=== PATIENT | male | born 1960 | race Caucasian/White ===

== ENCOUNTER 2021-05-30 14:08 | Inpatient (IN) | payer OTHER ==
[2021-05-30 16:07] VITALS: BMI 27.4
[2021-05-30] MEDS ORDERED: MAGNESIUM CITRATE 300 ML BOTTLE PO PRN (17:23)
[2021-05-30] MEDS ORDERED: MAG HYDROX/AL HYDROX/SIMETH 30 ML UNIT-DOSE CUP PO PRN (17:23)
[2021-05-30] MEDS ORDERED: guaiFENesin 200 MG/10 ML 10 ML UNIT-DOSE CUPS PO PRN (17:23)
[2021-05-30] MEDS ORDERED: MAGNESIUM HYDROX 2400MG/30ML ORAL SUSPENSION 30 ML CUP PO PRN (17:23)
[2021-05-30] MEDS ORDERED: P-EPHED 60MG/TRIPROLIDI 2.5MG TABLET PO PRN (17:23)
[2021-05-30] MEDS ORDERED: LOPERAMIDE HCL 2 MG CAPSULE PO PRN (17:23)
[2021-05-30] MEDS: hydrOXYzine PAMOATE 25 MG CAPSULE (FP) PO SCH ×2 (21:08→21:39)
[2021-05-30] MEDS: ACETAMINOPHEN 325 MG TABLET (FP) PO PRN (21:08)
[2021-05-30] MEDS: THIAMINE HCL 100 MG TABLET (FP) PO SCH (21:08)
[2021-05-30] MEDS: NICOTINE 7 MG/24 HOURS TOPICAL PATCH TD SCH (21:11)
[2021-05-30] MEDS: PRENATAL VITAMINS W/ FOLIC ACID TABLET (FP) PO SCH (21:11)
[2021-05-30] MEDS ORDERED: MELATONIN 5 MG TABLETS PO SCH (22:00)
[2021-05-30] MEDS: IBUPROFEN 400 MG TABLET (FP) PO PRN (23:34)
[2021-05-31] MEDS: hydrOXYzine PAMOATE 25 MG CAPSULE (FP) PO SCH ×5 (07:08→21:45)
[2021-05-31] MEDS: NICOTINE 7 MG/24 HOURS TOPICAL PATCH TD SCH (10:06)
[2021-05-31] MEDS: PRENATAL VITAMINS W/ FOLIC ACID TABLET (FP) PO SCH (10:06)
[2021-05-31] MEDS: NICOTINE 10 MG CARTRIDGE (INHALER) IH PRN (10:10)
[2021-05-31 10:32] LABS: PH,URINE 5.5 (5.0-8.0); URINE APPEARANCE CLEAR; URINE BILIRUBIN NEGATIVE (NEGATIVE); URINE COLOR YELLOW; URINE GLUCOSE (UA) NEGATIVE (NEGATIVE); URINE KETONE NEGATIVE (NEGATIVE); URINE LEUK ESTERASE NEGATIVE (NEGATIVE); URINE NITRITE NEGATIVE (NEGATIVE); URINE PROTEIN NEGATIVE (NEGATIVE)
[2021-05-31 10:33] LABS: HEMATOCRIT 43.6 % (35.4-49); HEMOGLOBIN 14.7 GM/dL (11.7-16.9); MCH 28.6 pg (25.7-33.7); MCHC 33.6 g/dl (32.0-35.9); MEAN CELL VOLUME 85.1 fl (80-96); MEAN PLT VOLUME 9.2 fl (7.5-11.1); PLATELET COUNT 166 10^3/uL (134-434); RBC 5.13 M/mm3 (4.00-5.60); RDW 14.6 % (11.9-15.9); WHITE BLOOD COUNT 6.8 K/mm3 (4.0-10.0)
[2021-05-31 10:42] LABS: CALCIUM 8.8 mg/dL (8.5-10.1)
[2021-05-31 10:43] LABS: BLOOD UREA NITROGEN 18.3 mg/dL (7-18)
[2021-05-31 10:46] LABS: CREATININE 0.8 mg/dL (0.55-1.3)
[2021-05-31 10:47] LABS: BILIRUBIN,TOTAL 0.6 mg/dL (0.2-1); TOT PROT 6.4 g/dl (6.4-8.2)
[2021-05-31] MEDS ORDERED: NICOTINE 21 MG/24 HOURS TOPICAL PATCH TD SCH (12:30)
[2021-05-31] MEDS: lamoTRIgine 25 MG TABLET PO SCH (12:41)
[2021-05-31] MEDS ORDERED: ALBUTEROL SO4 HFA INHALER IH PRN (14:00)
[2021-05-31] MEDS ORDERED: LIDOCAINE HCL 5% TOP OINTMENT 50 GM TUBE TP SCH (14:15)
[2021-05-31 14:28] LABS: SYPHILIS W/ RPR CONF NON-REACTIVE (NONREACTIVE)
[2021-05-31] MEDS: ERGOCALCIFEROL (VIT D2) 50,000 UNIT (1.25 MG) CAPSULE PO SCH (14:57)
[2021-05-31] MEDS: LISINOPRIL 5 MG TABLET PO SCH (14:58)
[2021-05-31] MEDS: MAGNESIUM OXIDE 400 MG TABLET (FP) PO SCH (14:58)
[2021-05-31] MEDS: ASPIRIN COATED 81 MG TABLET.EC PO SCH (14:58)
[2021-05-31] MEDS: PANTOPRAZOLE 20 MG TABLET PO SCH (14:59)
[2021-05-31] MEDS: FLUTICASONE PROP 0.05% 16 GM NASAL SPRAY NS SCH ×3 (14:59→21:44)
[2021-05-31] MEDS: TIOTROPIUM BROMIDE 2.5 MCG (SPIRIVA) RESPIMAT INHALER IH SCH (15:00)
[2021-05-31] MEDS ORDERED: PT OWN MED DRAWER 7, Y5N ONE ×2 (16:16→21:42)
[2021-05-31] MEDS: IBUPROFEN 400 MG TABLET (FP) PO PRN (19:14)
[2021-05-31] MEDS: HYDROCORTISONE ACETATE 25 MG/SUPP.RECT RC SCH (21:36)
[2021-05-31] MEDS: THIAMINE HCL 100 MG TABLET (FP) PO SCH (21:37)
[2021-05-31] MEDS: GABAPENTIN 300 MG CAPSULE PO PRN (21:37)
[2021-05-31] MEDS: SUVOREXANT 10 MG TABLET PO PRN (21:42)
[2021-05-31] MEDS: ATORVASTATIN CA 80 MG TABLET (FP) PO SCH (21:43)
[2021-05-31] MEDS: LIDOCAINE HCL 5% TOP OINTMENT 50 GM TUBE TP SCH (21:45)
[2021-06-01] MEDS: hydrOXYzine PAMOATE 25 MG CAPSULE (FP) PO SCH ×5 (06:27→21:41)
[2021-06-01] MEDS: NICOTINE 21 MG/24 HOURS TOPICAL PATCH TD SCH (09:43)
[2021-06-01] MEDS: PANTOPRAZOLE 20 MG TABLET PO SCH (09:44)
[2021-06-01] MEDS: LISINOPRIL 5 MG TABLET PO SCH (09:44)
[2021-06-01] MEDS: ASPIRIN COATED 81 MG TABLET.EC PO SCH (09:44)
[2021-06-01] MEDS: MAGNESIUM OXIDE 400 MG TABLET (FP) PO SCH (09:45)
[2021-06-01] MEDS: lamoTRIgine 25 MG TABLET PO SCH (09:45)
[2021-06-01] MEDS: CYANOCOBALAMIN 1,000 MCG TABLET (FP) PO SCH (09:45)
[2021-06-01] MEDS: PRENATAL VITAMINS W/ FOLIC ACID TABLET (FP) PO SCH (09:46)
[2021-06-01] MEDS: LIDOCAINE HCL 5% TOP OINTMENT 50 GM TUBE TP SCH (09:47)
[2021-06-01] MEDS: TIOTROPIUM BROMIDE 2.5 MCG (SPIRIVA) RESPIMAT INHALER IH SCH (09:48)
[2021-06-01] MEDS: IBUPROFEN 400 MG TABLET (FP) PO PRN ×2 (09:48→20:01)
[2021-06-01] MEDS: NICOTINE 10 MG CARTRIDGE (INHALER) IH PRN ×2 (09:50→17:37)
[2021-06-01] MEDS ORDERED: PT OWN MED DRAWER 7, Y5N ONE ×2 (19:41→21:43)
[2021-06-01] MEDS: FLUTICASONE PROP 0.05% 16 GM NASAL SPRAY NS SCH (21:41)
[2021-06-01] MEDS: ATORVASTATIN CA 80 MG TABLET (FP) PO SCH (21:41)
[2021-06-01] MEDS: THIAMINE HCL 100 MG TABLET (FP) PO SCH (21:41)
[2021-06-01] MEDS: HYDROCORTISONE ACETATE 25 MG/SUPP.RECT RC SCH (21:43)
[2021-06-01] MEDS: SUVOREXANT 10 MG TABLET PO PRN (21:44)
[2021-06-02] MEDS: GABAPENTIN 300 MG CAPSULE PO PRN (00:32)
[2021-06-02] MEDS: IBUPROFEN 400 MG TABLET (FP) PO PRN ×3 (03:19→18:25)
[2021-06-02] MEDS: hydrOXYzine PAMOATE 25 MG CAPSULE (FP) PO SCH ×5 (07:20→21:50)
[2021-06-02] MEDS: ASPIRIN COATED 81 MG TABLET.EC PO SCH (09:37)
[2021-06-02] MEDS: MAGNESIUM OXIDE 400 MG TABLET (FP) PO SCH (09:38)
[2021-06-02] MEDS: lamoTRIgine 25 MG TABLET PO SCH (09:38)
[2021-06-02] MEDS: LISINOPRIL 5 MG TABLET PO SCH (09:38)
[2021-06-02] MEDS: PANTOPRAZOLE 20 MG TABLET PO SCH (09:38)
[2021-06-02] MEDS: LIDOCAINE HCL 5% TOP OINTMENT 50 GM TUBE TP SCH (09:38)
[2021-06-02] MEDS: TIOTROPIUM BROMIDE 2.5 MCG (SPIRIVA) RESPIMAT INHALER IH SCH (09:38)
[2021-06-02] MEDS: CYANOCOBALAMIN 1,000 MCG TABLET (FP) PO SCH (09:38)
[2021-06-02] MEDS: NICOTINE 21 MG/24 HOURS TOPICAL PATCH TD SCH (09:39)
[2021-06-02] MEDS: NICOTINE 10 MG CARTRIDGE (INHALER) IH PRN ×3 (09:39→21:49)
[2021-06-02] MEDS: PRENATAL VITAMINS W/ FOLIC ACID TABLET (FP) PO SCH (09:39)
[2021-06-02] MEDS: LIDOCAINE 5% TOPICAL PATCH TP SCH (11:57)
[2021-06-02] MEDS ORDERED: PT OWN MED DRAWER 7, Y5N ONE ×3 (15:50→21:48)
[2021-06-02] MEDS: ACETAMINOPHEN 325 MG TABLET (FP) PO PRN (15:50)
[2021-06-02] MEDS: FLUTICASONE PROP 0.05% 16 GM NASAL SPRAY NS SCH (21:48)
[2021-06-02] MEDS: SUVOREXANT 10 MG TABLET PO PRN (21:48)
[2021-06-02] MEDS: HYDROCORTISONE ACETATE 25 MG/SUPP.RECT RC SCH (21:49)
[2021-06-02] MEDS: ATORVASTATIN CA 80 MG TABLET (FP) PO SCH (21:49)
[2021-06-02] MEDS: LIDOCAINE PATCH REMOVAL MC SCH (21:50)
[2021-06-02] MEDS: THIAMINE HCL 100 MG TABLET (FP) PO SCH (21:50)
[2021-06-02] MEDS ORDERED: LIDOCAINE PATCH REMOVAL MC SCH (22:00)
[2021-06-03] MEDS: IBUPROFEN 400 MG TABLET (FP) PO PRN ×3 (03:33→21:33)
[2021-06-03] MEDS: hydrOXYzine PAMOATE 25 MG CAPSULE (FP) PO SCH (06:31)
[2021-06-03] MEDS ORDERED: hydrOXYzine PAMOATE 25 MG CAPSULE (FP) PO PRN (09:08)
[2021-06-03] MEDS: TIOTROPIUM BROMIDE 2.5 MCG (SPIRIVA) RESPIMAT INHALER IH SCH (09:49)
[2021-06-03] MEDS: lamoTRIgine 25 MG TABLET PO SCH (09:50)
[2021-06-03] MEDS: LISINOPRIL 5 MG TABLET PO SCH (09:50)
[2021-06-03] MEDS: MAGNESIUM OXIDE 400 MG TABLET (FP) PO SCH (09:50)
[2021-06-03] MEDS: PANTOPRAZOLE 20 MG TABLET PO SCH (09:50)
[2021-06-03] MEDS: CYANOCOBALAMIN 1,000 MCG TABLET (FP) PO SCH (09:50)
[2021-06-03] MEDS: ASPIRIN COATED 81 MG TABLET.EC PO SCH (09:50)
[2021-06-03] MEDS: LIDOCAINE 5% TOPICAL PATCH TP SCH (09:51)
[2021-06-03] MEDS: NICOTINE 21 MG/24 HOURS TOPICAL PATCH TD SCH (09:51)
[2021-06-03] MEDS: PRENATAL VITAMINS W/ FOLIC ACID TABLET (FP) PO SCH (09:51)
[2021-06-03] MEDS ORDERED: FLU VACC QS2021-22(6MOS UP)/PF 60 MCG/0.5 ML SYRINGE IM ONE (12:00)
[2021-06-03] MEDS ORDERED: PT OWN MED DRAWER 7, Y5N ONE ×2 (19:01→21:31)
[2021-06-03] MEDS: THIAMINE HCL 100 MG TABLET (FP) PO SCH (21:32)
[2021-06-03] MEDS: SUVOREXANT 10 MG TABLET PO PRN (21:32)
[2021-06-03] MEDS: ATORVASTATIN CA 80 MG TABLET (FP) PO SCH (21:32)
[2021-06-03] MEDS: HYDROCORTISONE ACETATE 25 MG/SUPP.RECT RC SCH (21:34)
[2021-06-03] MEDS: LIDOCAINE HCL 5% TOP OINTMENT 50 GM TUBE TP PRN (21:35)
[2021-06-03] MEDS: FLUTICASONE PROP 0.05% 16 GM NASAL SPRAY NS SCH (21:36)
[2021-06-03] MEDS: LIDOCAINE PATCH REMOVAL MC SCH (21:37)
[2021-06-04] MEDS: IBUPROFEN 400 MG TABLET (FP) PO PRN ×2 (05:22→14:37)
[2021-06-04] MEDS: LIDOCAINE 5% TOPICAL PATCH TP SCH (10:48)
[2021-06-04] MEDS: PRENATAL VITAMINS W/ FOLIC ACID TABLET (FP) PO SCH (11:07)
[2021-06-04] MEDS: lamoTRIgine 25 MG TABLET PO SCH (11:07)
[2021-06-04] MEDS: CYANOCOBALAMIN 1,000 MCG TABLET (FP) PO SCH (11:07)
[2021-06-04] MEDS: TIOTROPIUM BROMIDE 2.5 MCG (SPIRIVA) RESPIMAT INHALER IH SCH (11:07)
[2021-06-04] MEDS: PANTOPRAZOLE 20 MG TABLET PO SCH (11:07)
[2021-06-04] MEDS: NICOTINE 21 MG/24 HOURS TOPICAL PATCH TD SCH (11:07)
[2021-06-04] MEDS: ASPIRIN COATED 81 MG TABLET.EC PO SCH (11:07)
[2021-06-04] MEDS: LISINOPRIL 5 MG TABLET PO SCH (11:07)
[2021-06-04] MEDS: ACETAMINOPHEN 325 MG TABLET (FP) PO PRN ×3 (11:12→21:33)
[2021-06-04] MEDS: ONDANSETRON *ODT* 4 MG TABLET SL PRN (11:14)
[2021-06-04] MEDS: MAGNESIUM OXIDE 400 MG TABLET (FP) PO SCH (11:45)
[2021-06-04] MEDS ORDERED: MELATONIN 5 MG TABLETS PO PRN (12:16)
[2021-06-04] MEDS ORDERED: PT OWN MED DRAWER 7, Y5N ONE ×2 (20:36→21:37)
[2021-06-04] MEDS: HYDROCORTISONE ACETATE 25 MG/SUPP.RECT RC SCH (21:30)
[2021-06-04] MEDS: ATORVASTATIN CA 80 MG TABLET (FP) PO SCH (21:30)
[2021-06-04] MEDS: THIAMINE HCL 100 MG TABLET (FP) PO SCH (21:30)
[2021-06-04] MEDS: LIDOCAINE PATCH REMOVAL MC SCH (21:31)
[2021-06-04] MEDS: FLUTICASONE PROP 0.05% 16 GM NASAL SPRAY NS SCH (21:31)
[2021-06-05] MEDS: IBUPROFEN 400 MG TABLET (FP) PO PRN ×3 (00:29→23:57)
[2021-06-05] MEDS: lamoTRIgine 25 MG TABLET PO SCH (09:31)
[2021-06-05] MEDS: ASPIRIN COATED 81 MG TABLET.EC PO SCH (09:31)
[2021-06-05] MEDS: LIDOCAINE 5% TOPICAL PATCH TP SCH (09:32)
[2021-06-05] MEDS: NICOTINE 21 MG/24 HOURS TOPICAL PATCH TD SCH (09:32)
[2021-06-05] MEDS: MAGNESIUM OXIDE 400 MG TABLET (FP) PO SCH (09:32)
[2021-06-05] MEDS: LISINOPRIL 5 MG TABLET PO SCH (09:33)
[2021-06-05] MEDS: CYANOCOBALAMIN 1,000 MCG TABLET (FP) PO SCH (09:33)
[2021-06-05] MEDS: PRENATAL VITAMINS W/ FOLIC ACID TABLET (FP) PO SCH (09:33)
[2021-06-05] MEDS: PANTOPRAZOLE 20 MG TABLET PO SCH (09:33)
[2021-06-05] MEDS: TIOTROPIUM BROMIDE 2.5 MCG (SPIRIVA) RESPIMAT INHALER IH SCH (09:33)
[2021-06-05] MEDS: ONDANSETRON *ODT* 4 MG TABLET SL PRN (12:27)
[2021-06-05] MEDS: NICOTINE 10 MG CARTRIDGE (INHALER) IH PRN ×2 (13:06→17:32)
[2021-06-05] MEDS ORDERED: PT OWN MED DRAWER 7, Y5N ONE (20:15)
[2021-06-05] MEDS: ATORVASTATIN CA 80 MG TABLET (FP) PO SCH (21:17)
[2021-06-05] MEDS: THIAMINE HCL 100 MG TABLET (FP) PO SCH (21:17)
[2021-06-05] MEDS: FLUTICASONE PROP 0.05% 16 GM NASAL SPRAY NS SCH (21:17)
[2021-06-05] MEDS: LIDOCAINE PATCH REMOVAL MC SCH (21:17)
[2021-06-05] MEDS: HYDROCORTISONE ACETATE 25 MG/SUPP.RECT RC SCH (21:20)
[2021-06-05] MEDS ORDERED: SUVOREXANT 10 MG TABLET PO PRN (22:00)
[2021-06-06] MEDS ORDERED: PT OWN MED DRAWER 7, Y5N ONE ×3 (01:30→22:28)
[2021-06-06] MEDS: IBUPROFEN 400 MG TABLET (FP) PO PRN ×2 (08:42→17:05)
[2021-06-06] MEDS: LIDOCAINE 5% TOPICAL PATCH TP SCH (09:43)
[2021-06-06] MEDS: NICOTINE 21 MG/24 HOURS TOPICAL PATCH TD SCH (09:43)
[2021-06-06] MEDS: PRENATAL VITAMINS W/ FOLIC ACID TABLET (FP) PO SCH (09:44)
[2021-06-06] MEDS: PANTOPRAZOLE 20 MG TABLET PO SCH (09:44)
[2021-06-06] MEDS: ASPIRIN COATED 81 MG TABLET.EC PO SCH (09:44)
[2021-06-06] MEDS: LISINOPRIL 5 MG TABLET PO SCH (09:44)
[2021-06-06] MEDS: MAGNESIUM OXIDE 400 MG TABLET (FP) PO SCH (09:44)
[2021-06-06] MEDS: lamoTRIgine 25 MG TABLET PO SCH (09:45)
[2021-06-06] MEDS: TIOTROPIUM BROMIDE 2.5 MCG (SPIRIVA) RESPIMAT INHALER IH SCH (09:46)
[2021-06-06] MEDS: CYANOCOBALAMIN 1,000 MCG TABLET (FP) PO SCH (09:46)
[2021-06-06] MEDS: NICOTINE 10 MG CARTRIDGE (INHALER) IH PRN (11:32)
[2021-06-06] MEDS: ATORVASTATIN CA 80 MG TABLET (FP) PO SCH (22:20)
[2021-06-06] MEDS: THIAMINE HCL 100 MG TABLET (FP) PO SCH (22:20)
[2021-06-06] MEDS: LIDOCAINE PATCH REMOVAL MC SCH (22:20)
[2021-06-06] MEDS: ACETAMINOPHEN 325 MG TABLET (FP) PO PRN (22:21)
[2021-06-06] MEDS: SUVOREXANT 15 MG TABLET PO PRN (22:24)
[2021-06-06] MEDS: HYDROCORTISONE ACETATE 25 MG/SUPP.RECT RC SCH (22:30)
[2021-06-06] MEDS: FLUTICASONE PROP 0.05% 16 GM NASAL SPRAY NS SCH (22:30)
[2021-06-07] MEDS: IBUPROFEN 400 MG TABLET (FP) PO PRN ×2 (07:44→19:09)
[2021-06-07] MEDS ORDERED: PT OWN MED DRAWER 7, Y5N ONE ×2 (08:54→19:42)
[2021-06-07] MEDS: ONDANSETRON *ODT* 4 MG TABLET SL PRN (09:04)
[2021-06-07] MEDS: LIDOCAINE 5% TOPICAL PATCH TP SCH (09:47)
[2021-06-07] MEDS: ASPIRIN COATED 81 MG TABLET.EC PO SCH (09:48)
[2021-06-07] MEDS: ERGOCALCIFEROL (VIT D2) 50,000 UNIT (1.25 MG) CAPSULE PO SCH (09:48)
[2021-06-07] MEDS: MAGNESIUM OXIDE 400 MG TABLET (FP) PO SCH (09:48)
[2021-06-07] MEDS: PANTOPRAZOLE 20 MG TABLET PO SCH (09:48)
[2021-06-07] MEDS: lamoTRIgine 25 MG TABLET PO SCH (09:48)
[2021-06-07] MEDS: PRENATAL VITAMINS W/ FOLIC ACID TABLET (FP) PO SCH (09:48)
[2021-06-07] MEDS: LISINOPRIL 5 MG TABLET PO SCH (09:48)
[2021-06-07] MEDS: NICOTINE 21 MG/24 HOURS TOPICAL PATCH TD SCH (09:50)
[2021-06-07] MEDS: CYANOCOBALAMIN 1,000 MCG TABLET (FP) PO SCH (09:51)
[2021-06-07] MEDS: TIOTROPIUM BROMIDE 2.5 MCG (SPIRIVA) RESPIMAT INHALER IH SCH (09:51)
[2021-06-07] MEDS: NICOTINE 10 MG CARTRIDGE (INHALER) IH PRN (19:09)
[2021-06-07] MEDS: LIDOCAINE HCL 5% TOP OINTMENT 50 GM TUBE TP PRN (21:40)
[2021-06-07] MEDS: SUVOREXANT 15 MG TABLET PO PRN (21:41)
[2021-06-07] MEDS: LIDOCAINE PATCH REMOVAL MC SCH (21:42)
[2021-06-07] MEDS: ATORVASTATIN CA 80 MG TABLET (FP) PO SCH (21:42)
[2021-06-07] MEDS: THIAMINE HCL 100 MG TABLET (FP) PO SCH (21:42)
[2021-06-07] MEDS: FLUTICASONE PROP 0.05% 16 GM NASAL SPRAY NS SCH (21:43)
[2021-06-07] MEDS: HYDROCORTISONE ACETATE 25 MG/SUPP.RECT RC SCH (21:43)
[2021-06-08] MEDS: ONDANSETRON *ODT* 4 MG TABLET SL PRN (01:17)
[2021-06-08] MEDS: IBUPROFEN 400 MG TABLET (FP) PO PRN ×3 (06:49→20:17)
[2021-06-08] MEDS: LIDOCAINE HCL 5% TOP OINTMENT 50 GM TUBE TP PRN (07:03)
[2021-06-08] MEDS ORDERED: PT OWN MED DRAWER 7, Y5N ONE ×3 (07:03→20:07)
[2021-06-08] MEDS: LIDOCAINE 5% TOPICAL PATCH TP SCH (09:54)
[2021-06-08] MEDS: lamoTRIgine 25 MG TABLET PO SCH (09:54)
[2021-06-08] MEDS: ASPIRIN COATED 81 MG TABLET.EC PO SCH (09:54)
[2021-06-08] MEDS: MAGNESIUM OXIDE 400 MG TABLET (FP) PO SCH (09:55)
[2021-06-08] MEDS: NICOTINE 21 MG/24 HOURS TOPICAL PATCH TD SCH (09:55)
[2021-06-08] MEDS: PRENATAL VITAMINS W/ FOLIC ACID TABLET (FP) PO SCH (09:55)
[2021-06-08] MEDS: PANTOPRAZOLE 20 MG TABLET PO SCH (09:56)
[2021-06-08] MEDS: TIOTROPIUM BROMIDE 2.5 MCG (SPIRIVA) RESPIMAT INHALER IH SCH (09:56)
[2021-06-08] MEDS: LISINOPRIL 5 MG TABLET PO SCH (09:56)
[2021-06-08] MEDS: CYANOCOBALAMIN 1,000 MCG TABLET (FP) PO SCH (09:56)
[2021-06-08] MEDS: NICOTINE 10 MG CARTRIDGE (INHALER) IH PRN (14:31)
[2021-06-08] MEDS: ATORVASTATIN CA 80 MG TABLET (FP) PO SCH (21:31)
[2021-06-08] MEDS: THIAMINE HCL 100 MG TABLET (FP) PO SCH (21:31)
[2021-06-08] MEDS: FLUTICASONE PROP 0.05% 16 GM NASAL SPRAY NS SCH (21:43)
[2021-06-08] MEDS: HYDROCORTISONE ACETATE 25 MG/SUPP.RECT RC SCH (21:44)
[2021-06-08] MEDS ORDERED: SUVOREXANT 15 MG TABLET PO PRN (22:00)
[2021-06-08] MEDS: LIDOCAINE PATCH REMOVAL MC SCH (22:35)
[2021-06-09] MEDS: ACETAMINOPHEN 325 MG TABLET (FP) PO PRN ×2 (00:23→14:35)
[2021-06-09] MEDS: GABAPENTIN 300 MG CAPSULE PO PRN ×4 (00:23→21:39)
[2021-06-09] MEDS: IBUPROFEN 400 MG TABLET (FP) PO PRN (06:40)
[2021-06-09] MEDS ORDERED: PT OWN MED DRAWER 7, Y5N ONE ×2 (08:44→19:21)
[2021-06-09] MEDS: PANTOPRAZOLE 20 MG TABLET PO SCH (09:37)
[2021-06-09] MEDS: ASPIRIN COATED 81 MG TABLET.EC PO SCH (09:37)
[2021-06-09] MEDS: LISINOPRIL 5 MG TABLET PO SCH (09:37)
[2021-06-09] MEDS: PRENATAL VITAMINS W/ FOLIC ACID TABLET (FP) PO SCH (09:37)
[2021-06-09] MEDS: LIDOCAINE 5% TOPICAL PATCH TP SCH (09:38)
[2021-06-09] MEDS: NICOTINE 21 MG/24 HOURS TOPICAL PATCH TD SCH (09:38)
[2021-06-09] MEDS: lamoTRIgine 25 MG TABLET PO SCH (09:38)
[2021-06-09] MEDS: TIOTROPIUM BROMIDE 2.5 MCG (SPIRIVA) RESPIMAT INHALER IH SCH (09:39)
[2021-06-09] MEDS: CYANOCOBALAMIN 1,000 MCG TABLET (FP) PO SCH (09:39)
[2021-06-09] MEDS: MAGNESIUM OXIDE 400 MG TABLET (FP) PO SCH (09:39)
[2021-06-09] MEDS: ONDANSETRON *ODT* 4 MG TABLET SL PRN (14:35)
[2021-06-09] MEDS: FLUTICASONE PROP 0.05% 16 GM NASAL SPRAY NS SCH (21:37)
[2021-06-09] MEDS: THIAMINE HCL 100 MG TABLET (FP) PO SCH (21:38)
[2021-06-09] MEDS: ATORVASTATIN CA 80 MG TABLET (FP) PO SCH (21:38)
[2021-06-09] MEDS: MELATONIN 5 MG TABLETS PO SCH (21:38)
[2021-06-09] MEDS: HYDROCORTISONE ACETATE 25 MG/SUPP.RECT RC SCH (21:38)
[2021-06-09] MEDS: LIDOCAINE PATCH REMOVAL MC SCH (22:56)
[2021-06-10] MEDS: IBUPROFEN 400 MG TABLET (FP) PO PRN ×2 (04:30→16:57)
[2021-06-10] MEDS: GABAPENTIN 300 MG CAPSULE PO PRN ×2 (06:33→16:57)
[2021-06-10] MEDS: TIOTROPIUM BROMIDE 2.5 MCG (SPIRIVA) RESPIMAT INHALER IH SCH (09:47)
[2021-06-10] MEDS: lamoTRIgine 25 MG TABLET PO SCH (09:47)
[2021-06-10] MEDS: PANTOPRAZOLE 20 MG TABLET PO SCH (09:47)
[2021-06-10] MEDS: LISINOPRIL 5 MG TABLET PO SCH (09:47)
[2021-06-10] MEDS: ASPIRIN COATED 81 MG TABLET.EC PO SCH (09:47)
[2021-06-10] MEDS: NICOTINE 21 MG/24 HOURS TOPICAL PATCH TD SCH (09:48)
[2021-06-10] MEDS: PRENATAL VITAMINS W/ FOLIC ACID TABLET (FP) PO SCH (09:48)
[2021-06-10] MEDS: CYANOCOBALAMIN 1,000 MCG TABLET (FP) PO SCH (09:48)
[2021-06-10] MEDS: MAGNESIUM OXIDE 400 MG TABLET (FP) PO SCH (09:50)
[2021-06-10] MEDS: LIDOCAINE 5% TOPICAL PATCH TP SCH (12:15)
[2021-06-10] MEDS ORDERED: PT OWN MED DRAWER 7, Y5N ONE ×3 (19:35→22:21)
[2021-06-10] MEDS: FLUTICASONE PROP 0.05% 16 GM NASAL SPRAY NS SCH (22:01)
[2021-06-10] MEDS: HYDROCORTISONE ACETATE 25 MG/SUPP.RECT RC SCH (22:02)
[2021-06-10] MEDS: MELATONIN 5 MG TABLETS PO SCH (22:02)
[2021-06-10] MEDS: THIAMINE HCL 100 MG TABLET (FP) PO SCH (22:02)
[2021-06-10] MEDS: ATORVASTATIN CA 80 MG TABLET (FP) PO SCH (22:02)
[2021-06-10] MEDS: LIDOCAINE HCL 5% TOP OINTMENT 50 GM TUBE TP PRN (22:07)
[2021-06-10] MEDS: LIDOCAINE PATCH REMOVAL MC SCH (22:16)
[2021-06-11] MEDS: ACETAMINOPHEN 325 MG TABLET (FP) PO PRN ×2 (00:56→14:37)
[2021-06-11 06:49] VITALS: TEMP 97.3
[2021-06-11] MEDS ORDERED: LIDOCAINE PATCH REMOVAL MC SCH (09:14)
[2021-06-11] MEDS: IBUPROFEN 400 MG TABLET (FP) PO PRN (09:56)
[2021-06-11] MEDS: PANTOPRAZOLE 20 MG TABLET PO SCH (09:57)
[2021-06-11] MEDS: lamoTRIgine 25 MG TABLET PO SCH (09:57)
[2021-06-11] MEDS: CYANOCOBALAMIN 1,000 MCG TABLET (FP) PO SCH (09:57)
[2021-06-11] MEDS: PRENATAL VITAMINS W/ FOLIC ACID TABLET (FP) PO SCH (09:57)
[2021-06-11] MEDS: LISINOPRIL 5 MG TABLET PO SCH (09:57)
[2021-06-11] MEDS: MAGNESIUM OXIDE 400 MG TABLET (FP) PO SCH (09:57)
[2021-06-11] MEDS: ASPIRIN COATED 81 MG TABLET.EC PO SCH (09:57)
[2021-06-11] MEDS: NICOTINE 21 MG/24 HOURS TOPICAL PATCH TD SCH (09:57)
[2021-06-11] MEDS: LIDOCAINE 5% TOPICAL PATCH TP SCH (09:57)
[2021-06-11] MEDS: TIOTROPIUM BROMIDE 2.5 MCG (SPIRIVA) RESPIMAT INHALER IH SCH (09:58)
[2021-06-11] MEDS: LIDOCAINE HCL 5% TOP OINTMENT 50 GM TUBE TP PRN (09:59)
[2021-06-11 12:55] LABS: ALBUMIN 3.4 g/dl (3.4-5.0); CALCIUM 8.9 mg/dL (8.5-10.1)
[2021-06-11 12:56] LABS: BLOOD UREA NITROGEN 16.4 mg/dL (7-18)
[2021-06-11 12:59] LABS: CREATININE 0.9 mg/dL (0.55-1.3)
[2021-06-11 13:00] LABS: BILIRUBIN,TOTAL 0.8 mg/dL (0.2-1); TOT PROT 7.1 g/dl (6.4-8.2)
[2021-06-11] MEDS: GABAPENTIN 300 MG CAPSULE PO PRN (14:37)
[2021-06-11] MEDS ORDERED: PT OWN MED DRAWER 7, Y5N ONE (19:33)
[2021-06-11] MEDS: FLUTICASONE PROP 0.05% 16 GM NASAL SPRAY NS SCH (21:51)
[2021-06-11] MEDS: THIAMINE HCL 100 MG TABLET (FP) PO SCH (21:51)
[2021-06-11] MEDS: HYDROCORTISONE ACETATE 25 MG/SUPP.RECT RC SCH (21:51)
[2021-06-11] MEDS: ATORVASTATIN CA 80 MG TABLET (FP) PO SCH (21:51)
[2021-06-11] MEDS: MELATONIN 5 MG TABLETS PO SCH (21:52)
[2021-06-11] MEDS: NICOTINE 10 MG CARTRIDGE (INHALER) IH PRN (22:26)
[2021-06-11 22:35] LABS: HIV INTERPRETATION NEGATIVE (NEGATIVE)
[2021-06-12] MEDS: IBUPROFEN 400 MG TABLET (FP) PO PRN (03:35)
[2021-06-12] MEDS ORDERED: PT OWN MED DRAWER 7, Y5N ONE (08:26)
[2021-06-12] MEDS: ASPIRIN COATED 81 MG TABLET.EC PO SCH (09:04)
[2021-06-12 09:05] VITALS: BP 121/80; PULSE 85
[2021-06-12] MEDS: LIDOCAINE 5% TOPICAL PATCH TP SCH (09:05)
[2021-06-12] MEDS: lamoTRIgine 25 MG TABLET PO SCH (09:05)
[2021-06-12] MEDS: MAGNESIUM OXIDE 400 MG TABLET (FP) PO SCH (09:06)
[2021-06-12] MEDS: NICOTINE 21 MG/24 HOURS TOPICAL PATCH TD SCH (09:06)
[2021-06-12] MEDS: PRENATAL VITAMINS W/ FOLIC ACID TABLET (FP) PO SCH (09:06)
[2021-06-12] MEDS: PANTOPRAZOLE 20 MG TABLET PO SCH (09:07)
[2021-06-12] MEDS: LISINOPRIL 5 MG TABLET PO SCH (09:07)
[2021-06-12] MEDS: TIOTROPIUM BROMIDE 2.5 MCG (SPIRIVA) RESPIMAT INHALER IH SCH (09:07)
[2021-06-12] MEDS: CYANOCOBALAMIN 1,000 MCG TABLET (FP) PO SCH (09:07)
== END 2021-06-12 09:34 | disposition home or self-care (01) | DRG 895 ==
LOC: YASAS 14:08 → Y3E 18:40
PROVIDERS: ADMIT Allergy & Immunology; ATTEND Allergy & Immunology
PROC: HZ42ZZZ Group Counseling for Substance Abuse Treatment, Cognitive-Behavioral (ICD-10-PCS; principal; 2021-05-30)
DX: F11.20 Opioid dependence, uncomplicated (principal); F14.20 Cocaine dependence, uncomplicated; F19.282 Other psychoactive substance dependence with psychoactive substance-induced sleep disorder; F19.280 Other psychoactive substance dependence with psychoactive substance-induced anxiety disorder; F17.210 Nicotine dependence, cigarettes, uncomplicated; F32.9 Major depressive disorder, single episode, unspecified; F19.24 Other psychoactive substance dependence with psychoactive substance-induced mood disorder; F43.10 Post-traumatic stress disorder, unspecified; I10 Essential (primary) hypertension; I25.10 Atherosclerotic heart disease of native coronary artery without angina pectoris; I25.2 Old myocardial infarction; E78.5 Hyperlipidemia, unspecified; K21.9 Gastro-esophageal reflux disease without esophagitis; M54.50 Low back pain, unspecified; M25.551 Pain in right hip; J44.9 Chronic obstructive pulmonary disease, unspecified; G47.00 Insomnia, unspecified; Z56.0 Unemployment, unspecified
CPT/HCPCS: 36415; 80053; 81003; 85027; 86780; 86803; 87389; 90686; 93005; 93010; C9803; G0008; Q0162; U0003; U0005